=== PATIENT | male | born 1960 | race Caucasian/White ===

== ENCOUNTER 2020-05-11 08:15 | Outpatient (REF) | payer MEDICARE, SELFPAY | END 2020-05-11 08:16 | disposition home or self-care (01) | LOC: HO.LAB 08:15 | PROVIDERS: Visit Provider Internal Medicine | DX: Z20.828 Contact with and (suspected) exposure to other viral communicable diseases (principal) | CPT/HCPCS: C9803; U0003 ==

== ENCOUNTER 2024-12-01 18:39 | Emergency (ER) | payer OTHER, MEDICARE, SELFPAY ==
--- NOTE | ~2024-12-01 | CT_ITS ---
CLINICAL HISTORY: injury, facial trauma CT head without contrast Comparison: CT of the face from 12/01/2024 Findings: No acute intracranial hemorrhage. No midline shift or hydrocephalus. Venous calcifications noted. Vascular calcifications also include imaged carotid siphons. Mild volume loss is generalized with thin bilateral subdural hygromas and borderline prominence of the extra-axial space. Mild mucosal thickening of the imaged paranasal sinuses. Imaged mastoid air cells are well aerated. No acute skull fracture. Scalp calcifications are multifocal and nonspecific. IMPRESSION: 1. No acute intracranial abnormality by CT. This document has been electronically signed by: Jose R Batista MD on 12/01/2024 19:50:21
--- NOTE | ~2024-12-01 | CT_ITS ---
CLINICAL HISTORY: injury, facial trauma CT maxillofacial without contrast Comparison: Head CT from 12/01/2024. Findings: Bilateral nasal bone fractures appear old chronic. No acute displaced orbital wall fracture. Anterior ethmoidal arteries are exposed. Mild left and moderate right osteoarthritis of the imaged temporomandibular joints without dislocation. No acute appearing or suspicious air-fluid levels of the paranasal sinuses with mild paranasal sinus mucosal thickening noted. Imaged mastoid air cells are well aerated. Calcifications of the imaged pharynx as can be seen with chronic and/or prior infection and/or inflammation. Vascular calcifications noted. IMPRESSION: No acute facial bone fracture. This document has been electronically signed by: Jose R Batista MD on 12/01/2024 19:49:47
--- NOTE | ~2024-12-01 | CT_ITS ---
CLINICAL HISTORY: injury, facial trauma CT cervical spine without contrast Comparison: None available Findings: No acute fracture of the cervical spine. Straightening of the cervical lordosis. Trace anterolisthesis at C4-C5 and C5-C6. Facet arthropathy and ligament calcifications are multifocal. Small disc osteophyte complexes with mild spinal canal stenosis at C5-C6 and C6-C7. Moderate right-sided foraminal narrowing at C5-C6. No paraspinal hematoma. Imaged cervical lymph nodes are nonspecific and may be reactive. Mild scarring of the imaged lung apices. IMPRESSION: No acute fracture of the cervical spine. This document has been electronically signed by: Jose R Batista MD on 12/01/2024 19:52:12
--- NOTE | ~2024-12-01 | XR_ITS ---
CLINICAL HISTORY: pain, injury 4 view left wrist Comparison: None Findings: Mild distal radius deformity appears old/chronic. Distal articular surface irregularity of the ulna also appears old/chronic with sclerosis and remodeling. No acute displaced fracture of the imaged radius or ulna. Acute dorsal fracture fragments of the lateral imaged most likely of the acute triquetral avulsion. Marked soft tissue swelling with aybyhqko-rw-ulrrr effusion present. Vascular calcifications noted. Osteoarthritis is multifocal in the dpnzu-ue-iwgo. IMPRESSION: 1. Acute triquetral avulsion fracture. 2. Soft tissue swelling with effusion present. 3. Multifocal osteoarthritis. This document has been electronically signed by: Jose R Batista MD on 12/01/2024 19:30:10
--- NOTE | ~2024-12-01 | XR_ITS ---
CLINICAL HISTORY: fall 4 view left ribs Comparison: None available Findings: Anterior-lateral additional rib deformities appear old/chronic. Acute nondisplaced fracture of the anterior aspect of the left 6 and 7th ribs. Mild bibasilar atelectasis. Emphysematous changes noted. No consolidation, pneumothorax, or pleural effusion. Mild/borderline cardiomegaly. Osteoarthritis includes imaged AC joints. IMPRESSION: 1. Acute nondisplaced fracture of the left 6th and 7th ribs. 2. Additional mild rib deformities appear old/chronic. 3. Mild bibasilar atelectasis. This document has been electronically signed by: Jose R Batista MD on 12/01/2024 19:57:55
--- NOTE | ~2024-12-01 | XR_ITS ---
CLINICAL HISTORY: fall 3 view left elbow Comparison: None Findings: Moderate osteoarthritis of the left elbow including multifocal osteophytes, with degenerative changes most pronounced of the olecranon trochlea articulation. Small-minimal effusion suggested. No acute displaced fracture. No dislocation. Small fragment and/or calcification likely related to medial epicondylitis. No radiopaque retained foreign body. IMPRESSION: 1. No acute fracture or dislocation. 2. Small calcification of the likely medial epicondylitis. 3. Moderate osteoarthritis of the elbow. This document has been electronically signed by: Jose R Batista MD on 12/01/2024 19:29:45
--- NOTE | ~2024-12-01 | XR_ITS ---
CLINICAL HISTORY: trauma 4 view left knee Comparison: None Findings: No acute displaced fracture. No dislocation. Lateral positioning of the patella as can be seen with patellofemoral tracking syndrome. Mild osteoarthritis of the imaged left knee. Moderate effusion present. Periosteal thickening of the proximal tibia as can be seen with venous stasis and stress phenomenon. No radiopaque retained foreign body. IMPRESSION: 1. No acute fracture or dislocation. 2. Moderate effusion present. 3. Mild degenerative changes This document has been electronically signed by: Jose R Batista MD on 12/01/2024 19:58:31
--- NOTE | ~2024-12-01 | XR_ITS ---
CLINICAL HISTORY: injury, pain 3 view left shoulder Comparison: None Findings: Mild inferior positioning of the acromion with mild-moderate osteoarthritis of the imaged left AC joint. Moderate osteoarthritis of the left glenohumeral joint without acute fracture or dislocation. Atelectasis is partially imaged. No radiopaque retained foreign body. IMPRESSION: 1. No acute fracture or dislocation of the left shoulder. 2. Moderate osteoarthritis of the left glenohumeral joint. 3. Mild-moderate osteoarthritis of the left AC joint. This document has been electronically signed by: Jose R Batista MD on 12/01/2024 19:31:04
[2024-12-01 18:45] VITALS: BP 165/93; PULSE 69; RESP 16; TEMP 36.7; O2SAT 96; BMI 29.9
--- NOTE | 2024-12-01 18:45 | ED.GENADULT ---
HPI - General Adult General Chief complaint: Fall Stated complaint: fall, scrape on face hand swollen left side Time Seen by Provider: 12/01/24 19:12 Source: patient, RN notes reviewed and old records reviewed Mode of arrival: ambulatory Limitations: no limitations History of Present Illness ED Provider: Kris MCKEON narrative: 64-year-old male presents for evaluation of a fall. 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 He was reaching up to grab the metal gate the pulled down pain He lost his balance causing him to fall onto his left side pain Complains of left-sided chest pain, left wrist pain and facial pain. He has a small abrasion to his left knee but reports no left knee pain. He is able to ambulate. Denies any loss of consciousness, he is not anticoagulated Related Data Home Medications ?Medication ?Instructions ?Recorded ?Confirmed aspirin 81 mg tablet,delayed 81 mg PO DAILY 12/02/24 release atorvastatin 80 mg tablet 80 mg PO DAILY 12/02/24 fexofenadine 180 mg tablet 180 mg PO DAILY 12/02/24 glimepiride 4 mg tablet 4 mg PO DAILY 12/02/24 hydrochlorothiazide 25 mg tablet 25 mg PO DAILY 12/02/24 lisinopril 30 mg tablet 30 mg PO DAILY 12/02/24 Allergies Allergy/AdvReac Type Severity Reaction Status Date / Time No Known Allergies Allergy Verified 12/02/24 11:31 [No Known Allergies*] Review of Systems Constitutional: Constitutional: Denies body ache(s), Denies chills, Denies fever(s), Denies frequent falls and Denies headache(s) ENT: Denies vertigo, Denies dizziness and Denies headache(s) Cardiovascular: Cardiovascular: Reports chest pain and Denies dyspnea Respiratory: Respiratory: Denies cough and Denies dyspnea Gastrointestinal: Gastrointestinal: Denies abdominal pain, Denies nausea and Denies vomiting Musculoskeletal: Musculoskeletal: Denies back pain, Reports arthralgias, Reports joint swelling, Reports limited range of motion, Denies radiating pain into limb and Denies stiffness Integumentary/Breasts: Skin/Breast: Denies rash and Reports wounds Neurologic: Denies vertigo, Denies dizziness, Denies frequent falls and Denies headache(s) [facility] Social History Social History (Updated 12/02/24 @ 11:32 by LENNY Guzman 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 occupational status: 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 No significant tenderness over the orbits. No nasal bone tenderness Eyes Eyelids: Yes eyelids normal Conjunctivae: conjunctivae normal Sclerae: sclerae normal Corneas: corneas normal Pupils: Equal, round and reactive pupils present EOM: EOMs intact bilaterally Neck Neck: Yes full ROM Resp Effort & Inspection: normal respiratory effort, able to speak in complete sentences and not labored Cardio Rate: regular rate Rhythm: regular rhythm GI Inspection: No distended Palpation (GI): Soft to palpation, not firm, nontender, no guarding and not rigid Back/Spine/Pelvis Other: No C-spine tenderness Skin General skin exam: elasticity normal Neuro General: patient oriented x3 Cranial nerves: Yes Equal, round and reactive pupils present and Yes Bilaterally intact EOM present Cognition (Neuro): normal cognition Extrem Other: The patient is able to move all extremities, mostly his tenderness is at the base of the left thumb and over the scaphoid area. There was no significant tenderness on the ulnar side of the left wrist. There was no deformity to left shoulder or elbow, there is mild tenderness to both areas. He has full range of motion of the left shoulder and elbow. There was a small abrasion to the left knee but no overlying deformity. Course Course Course Narrative: RME performed by Lissett Spencer PA-C. Patient is a 64 year old assigned male at presenting to the emergency department with left sided facial pain after a store gate fell onto him. 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 Imaging ordered. Patient placed back in the waiting room pending room availability and results. Medications Administered Discontinued Medications Generic Name Dose Route Start Last Admin Trade Name Simón PRN Reason Stop Dose Admin Acetaminophen 650 mg 12/01/24 19:21 12/01/24 20:37 Acetaminophen 325 Mg Tablet PO 12/01/24 19:22 650 mg ONCE ONE Administration Bacitracin 1 appl 12/01/24 20:28 12/01/24 20:38 Bacitracin Oint 0.9 Gm Packet TOPICAL 12/01/24 20:29 1 appl ONCE ONE Administration Protocol Medical Decision Making Medical Decision Making MDM Narrative: 64-year-old male presents for evaluation after a fall. He was trying to reach up the pull a gait down closing a store when he fell onto his left side. He is mostly left-sided chest pain and wrist pain over the scaphoid region. There was no crepitus on exam to the chest, no pneumothorax on x-ray. There are acute rib fractures of 6 and 7 on the left. I discussed this with the patient he will be given incentive spirometry. CT scan of the brain, cervical spine and facial bones show no traumatic injury. X-ray of the left shoulder, elbow and needed not show any traumatic injuries but do show severe osteoarthritis. Left wrist x-ray shows a triquetral fracture all the patient does not have any significant tenderness in his area. Most of his tenderness is overlying the scaphoid region. For this reason, the patient was placed in a thumb spica splint which should still have immobilize the wrist as well as protect the scaphoid region. He will follow up with Orthopedics Differential Diagnosis Differential Diagnoses: The differential diagnosis associated with the presentation includes Wrist fracture Contusion Wrist sprain Rib fracture Pneumothorax Hematoma Independent Interpretation I performed an independent interpretation of an: Plain X-Ray (Agree with Radiology interpretation) Radiology Impression Discussion of test interpretation with radiology: I have reviewed the radiologist's reading. Radiologist Impression: Findings: No acute intracranial hemorrhage. No midline shift or hydrocephalus. Venous calcifications noted. Vascular calcifications also include imaged carotid siphons. Mild volume loss is generalized with thin bilateral subdural hygromas and borderline prominence of the extra-axial space. Mild mucosal thickening of the imaged paranasal sinuses. Imaged mastoid air cells are well aerated. No acute skull fracture. Scalp calcifications are multifocal and nonspecific. IMPRESSION: 1. No acute intracranial abnormality by CT. This document has been electronically signed by: Jose R Batista MD on 12/01/2024 19:50:21 Findings: Bilateral nasal bone fractures appear old chronic. No acute displaced orbital wall fracture. Anterior ethmoidal arteries are exposed. Mild left and moderate right osteoarthritis of the imaged temporomandibular joints without dislocation. No acute appearing or suspicious air-fluid levels of the paranasal sinuses with mild paranasal sinus mucosal thickening noted. Imaged mastoid air cells are well aerated. Calcifications of the imaged pharynx as can be seen with chronic and/or prior infection and/or inflammation. Vascular calcifications noted. IMPRESSION: No acute facial bone fracture. This document has been electronically signed by: Jose R Batista MD on 12/01/2024 19:49:47 Findings: No acute fracture of the cervical spine. Straightening of the cervical lordosis. Trace anterolisthesis at C4-C5 and C5-C6. Facet arthropathy and ligament calcifications are multifocal. Small disc osteophyte complexes with mild spinal canal stenosis at C5-C6 and C6-C7. Moderate right-sided foraminal narrowing at C5-C6. No paraspinal hematoma. Imaged cervical lymph nodes are nonspecific and may be reactive. Mild scarring of the imaged lung apices. IMPRESSION: No acute fracture of the cervical spine. This document has been electronically signed by: Jose R Batista MD on 12/01/2024 19:52:12 Findings: Mild inferior positioning of the acromion with mild-moderate osteoarthritis of the imaged left AC joint. Moderate osteoarthritis of the left glenohumeral joint without acute fracture or dislocation. Atelectasis is partially imaged. No radiopaque retained foreign body. IMPRESSION: 1. No acute fracture or dislocation of the left shoulder. 2. Moderate osteoarthritis of the left glenohumeral joint. 3. Mild-moderate osteoarthritis of the left AC joint. This document has been electronically signed by: Jose R Batista MD on 12/01/2024 19:31:04 Findings: Mild distal radius deformity appears old/chronic. Distal articular surface irregularity of the ulna also appears old/chronic with sclerosis and remodeling. No acute displaced fracture of the imaged radius or ulna. Acute dorsal fracture fragments of the lateral imaged most likely of the acute triquetral avulsion. Marked soft tissue swelling with [id number]-zh-[id number] effusion present. Vascular calcifications noted. Osteoarthritis is multifocal in the byqgj-jf-acxh. IMPRESSION: 1. Acute triquetral avulsion fracture. 2. Soft tissue swelling with effusion present. 3. Multifocal osteoarthritis. This document has been electronically signed by: Jose R Batista MD on 12/01/2024 19:30:10 Findings: Moderate osteoarthritis of the left elbow including multifocal osteophytes, with degenerative changes most pronounced of the olecranon trochlea articulation. Small-minimal effusion suggested. No acute displaced fracture. No dislocation. Small fragment and/or calcification likely related to medial epicondylitis. No radiopaque retained foreign body. IMPRESSION: 1. No acute fracture or dislocation. 2. Small calcification of the likely medial epicondylitis. 3. Moderate osteoarthritis of the elbow. This document has been electronically signed by: Jose R Batista MD on 12/01/2024 19:29:45 Findings: Anterior-lateral additional rib deformities appear old/chronic. Acute nondisplaced fracture of the anterior aspect of the left 6 and 7th ribs. Mild bibasilar atelectasis. Emphysematous changes noted. No consolidation, pneumothorax, or pleural effusion. Mild/borderline cardiomegaly. Osteoarthritis includes imaged AC joints. IMPRESSION: 1. Acute nondisplaced fracture of the left 6th and 7th ribs. 2. Additional mild rib deformities appear old/chronic. 3. Mild bibasilar atelectasis. This document has been electronically signed by: Jose R Batista MD on 12/01/2024 19:57:55 Findings: No acute displaced fracture. No dislocation. Lateral positioning of the patella as can be seen with patellofemoral tracking syndrome. Mild osteoarthritis of the imaged left knee. Moderate effusion present. Periosteal thickening of the proximal tibia as can be seen with venous stasis and stress phenomenon. No radiopaque retained foreign body. IMPRESSION: 1. No acute fracture or dislocation. 2. Moderate effusion present. 3. Mild degenerative changes This document has been electronically signed by: Jose R Batista MD on 12/01/2024 19:58:31 Discharge Plan Discharge Clinical Impression: Avulsion fracture of left wrist, Closed rib fracture Patient Disposition: Home, Self-Care Instructions: Wrist Fracture in Adults (ED), Rib Fracture (ED) Additional Instructions: You appear to have a left wrist fracture, it is important to follow up with Orthopedics. Keep the splint in place until you follow up with Orthopedics You also have 2 rib fractures, 6 and 7 on the left Use ibuprofen/Tylenol for pain. I recommended symptoms spirometry to help prevent pneumonia. You should use this once every hour Prescriptions: No Action lisinopril 30 mg tablet 30 mg PO DAILY glimepiride 4 mg tablet 4 mg PO DAILY aspirin 81 mg tablet,delayed release (DR/EC) 81 mg PO DAILY hydrochlorothiazide 25 mg tablet 25 mg PO DAILY atorvastatin 80 mg tablet 80 mg PO DAILY fexofenadine 180 mg tablet 180 mg PO DAILY Referrals: [facility] [Provider Group] (left wrist fracture, ? scaphoid fracture) Interventions: ED Discharge Assessment Last Done: 12/01/24 21:40 Discharge Date/Time: 12/01/24 21:41 Print Language: Tamazight
[2024-12-01 19:25] VITALS: BP 134/59; PULSE 67; RESP 16; TEMP 36.6; O2SAT 97
[2024-12-01] MEDS: Acetaminophen 325 MG TABLET 650 MG PO (20:37)
[2024-12-01] MEDS: Bacitracin Oint 0.9 GM PACKET 1 APPL TOPICAL (20:38)
[2024-12-01 21:30] VITALS: BP 159/82; PULSE 68; RESP 16; TEMP 36.7; O2SAT 98
[2024-12-01 21:40] VITALS: BP 159/82; PULSE 68; RESP 16; TEMP 36.7; O2SAT 98
== END 2024-12-01 21:41 | disposition home or self-care (01) ==
PROVIDERS: Emergency Provider Internal Medicine; PCP Internal Medicine
DX: S80.212A Abrasion, left knee, initial encounter (principal); S62.112A Displaced fracture of triquetrum [cuneiform] bone, left wrist, initial encounter for closed fracture; S22.42XA Multiple fractures of ribs, left side, initial encounter for closed fracture; W18.30XA Fall on same level, unspecified, initial encounter; Y93.89 Activity, other specified; Y92.9 Unspecified place or not applicable; Y99.9 Unspecified external cause status; R51.9 Headache, unspecified; M25.532 Pain in left wrist; R07.89 Other chest pain
CPT/HCPCS: 70450; 70486; 71101; 72125; 73030; 73080; 73110; 73562; 99284

== ENCOUNTER → 2024-12-01 18:47 | Outpatient (BNV) | payer OTHER, SELFPAY | PROVIDERS: PCP Internal Medicine; Visit Provider Radiology Neuroradiology | DX: S09.93XA Unspecified injury of face, initial encounter (principal); R07.89 Other chest pain; S80.212A Abrasion, left knee, initial encounter; M25.532 Pain in left wrist; M25.512 Pain in left shoulder; M25.522 Pain in left elbow; W19.XXXA Unspecified fall, initial encounter; Z04.2 Encounter for examination and observation following work accident | CPT/HCPCS: 70450; 70486; 71101; 72125; 73030; 73080; 73110; 73562 ==

== ENCOUNTER 2024-12-02 11:13 | Outpatient (REF) | payer OTHER, MEDICARE, SELFPAY ==
--- NOTE | ~2024-12-02 | XR_ITS ---
EXAMINATION: XR WRIST NAVICULAR LEFT HISTORY: M25.532 - Pain in left wrist COMPARISON: Comparison is made with the prior examination dated 12/20/2024. FINDINGS: Four views of the left breast including a scaphoid view are submitted. Osseous mineralization is normal. Again seen is a fracture of the triquetrum. No additional fracture is seen. There is no dislocation. The joint spaces are preserved. There are vascular calcifications. XR/XR wrist LT w scaphoid IMPRESSION: Fracture of the triquetrum without change. Electronically signed by: Jared Zamarripa MD 12/02/2024 03:41 PM EDT
--- OUTSIDE RECORDS SUMMARY | 2024-12-02 12:29 | XMS_ITS | Clinical Summary ---
Author Organization [facility] [address] [facility] Address [address] [place] [address] Care Team Providers Care Doctor Of Nurse Anesthesia Practice Name Role Phone No, Pcp (Do Not Change Name) Primary Care Provid er Unavailable Medications lisinopril (PRINIVIL,ZESTRI L) 40 MG tablet Take 40 mg by mouth daily. Active Social History Tobacco Use Types Packs/Day Years Used Date Smoking Tobacco: Never Alcohol Use Standard Drinks/Week Comments No 0 (1 standard drink = 0.6 oz pur e alcohol) Sex and Gender Information Value Date Recorded Sex Assigned at Not on file Legal Sex Male 8:36 PM EDT Gender Identity Not on file Sexual Orientation Not on file Last Filed Vital Signs Vital Sign Reading Time Taken Comments Blood Pressure 171/100 11/20/2013 2:08 AM EDT Pulse 74 11/20/2013 2:08 AM EDT Temperature 36.9 ??C (98.5 ??F) 11/20/2013 2:08 AM ED T Respiratory Rate 16 11/20/2013 2:08 AM EDT Oxygen Saturation 100% 11/20/2013 2:08 AM EDT Inhaled Oxygen Concentration - - Weight 72.6 kg (160 lb) 11/20/2013 2:08 AM EDT Height - - Body Mass Index - - Plan of Treatment Health Maintenance Due Date Last Done Comments HIV screening 02/28/1972 Hepatitis C screening 1977 Tetanus adult (Td q 10,TDAP once) 1979 Lipid disorder screening 1999 Colon cancer screening, Colonoscopy 02/28/2004 Diabetes screening 02/28/2004 Pneumococcal Vaccine (50+ ye ars) (1 of 1 - PCV) 2009 Shingles vaccine (Shingrix) (1 of 2 - Shingrix (RZV) 2 Dose Standard Series) 2009 Covid-19 vaccine series (2023-25 season) 2024 Influenza vaccine 03/03/2025 RSV Immunization (1 - 1-dose 75+ series) 2034 Meningococcal Vaccine Aged Out No delicia martín eligible based on patient's age to complete this topic Insurance [id number] MEDICAID [id number] MEDICAID [id number] MEDICAID [id number] MEDICAID [id number] MEDICAID [id number] MEDICAID [id number] MEDICAID Care Teams Doctor Of Nurse Anesthesia Practice Relationship Specialty Start Date End Date No, Pcp (Do Not Change Name) PCP - General 11/19/13
== END 2024-12-02 11:14 | disposition home or self-care (01) ==
LOC: HO.HOSX 11:13
DX: S62.112A Displaced fracture of triquetrum [cuneiform] bone, left wrist, initial encounter for closed fracture (principal); W19.XXXA Unspecified fall, initial encounter; Y93.9 Activity, unspecified; Y92.9 Unspecified place or not applicable; Y99.9 Unspecified external cause status
CPT/HCPCS: 29085; 73110; 99212

== ENCOUNTER 2024-12-02 11:14 | Outpatient (AMB) | payer OTHER, SELFPAY ==
[2024-12-02 11:25] VITALS: BMI 29.8
--- NOTE | 2024-12-02 11:25 | MHC.OFFVIS ---
Vital Signs 12/02/24 11:25 Height 5 ft 3 in Weight 168 lb BMI 29.8 Intake Visit Reasons: FC- Left wrist avulsion fracture Intake Note: Jeffrey 64 yr old right hand dominant male presents today for a fracture care visit for his left wrist. 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 He was reaching up to grab the metal gate the pulled down pain, he lost his balance causing him to fall onto his left side pain. Seen in [facility] where xrays were taken, a fracture was confirmed and he was splinted. Currently states he is having left thumb pain, swelling and bruising. Denies numbness or tingling. Balance Wheel Hand Filer Name: Tia LANDRUM/BAIRON Allergies No Known Allergies [No Known Allergies*] Allergy (Verified 12/02/24 11:31) [facility] HPI FC- Left wrist avulsion fracture: Details: Jeffrey 64 yr old right hand dominant male presents today for a fracture care visit for his left wrist. 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 He was reaching up to grab the metal gate the pulled down pain, he lost his balance causing him to fall onto his left side pain. Seen in [facility] where xrays were taken, a fracture was confirmed and he was splinted. Currently states he is having left thumb pain, swelling and bruising at the base of the nail. Denies numbness or tingling. 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 Neuro: Normal sensation of the tips of all digits of the left hand at this time Vascular: Cap refill brisk Pain: Some tenderness to palpation at the base of the nail of the R thumb Tender to palpation of the dorsal R wrist ROM: Patient is able to flex and extend all digits of the left hand fully and without difficulty Skin: No lacerations or abrasions. General: No erythema, or evidence of infection. Psych: Appears grossly normal Affect normal Attitude cooperative Office Procedures AMB Fracture Care Details: Left triquetrum avulsion fracture Fracture Billing Code: Fracture Billing Code Casting/Splints 01909-Xjpx/Wrist Cast Application Procedure code (CPT) selection complete Results Reviewed Results Reviewed: X-rays obtained in the office today and independently reviewed by me, Curt Valencia PA-C, demonstrate nondisplaced avulsion fracture of the left triquetrum. Assessment & Plan Assessment & Plan (1) Fracture of triquetrum of left wrist: Code(s): S62.112A - Displaced fracture of triquetrum [cuneiform] bone, left wrist, initial encounter for closed fracture Category: Medical Plan 1. Nondisplaced fracture of the left triquetrum Date of injury 12/01/2024 Patient is educated about this condition Patient is educated about the typical recovery course At this time, due to the absence of significant edema, I feel it is appropriate to place the patient into a short-arm cast Patient is educated on proper cast care and precautions Patient is educated that due to his co contaminant rib fracture and facial fractures, I feel he should speak to his primary care doctor to see if it is still appropriate for him to fly to the [facility] next week Patient is amenable to this plan Follow-up in 3 weeks with repeat x-rays, sooner with any acute concerns Orders: Orders XR wrist LT w scaphoid Today M25.532 - Pain in left wrist Medications: Discontinued oxycodone Partial Fill upon patient request. Discontinued Reason: Patient Completed Course 5 mg PO Q6H PRN 16 tabs 0RF severe pain (scale score 7-10) Coding Level of Care Code Est Pt Level 3 (60891) Diagnoses Fracture of triquetrum of left wrist S62.112A CPT Codes Fracture Care - Fracture Billing Code: Fracture Billing Code ([id number]) Casting - CPT: 70044-Stgc/Wrist Cast Application ([id number])
== END 2024-12-02 12:01 | disposition home or self-care (01) ==
LOC: HO.HOS 11:14
PROVIDERS: PCP Internal Medicine
DX: S62.112A Displaced fracture of triquetrum [cuneiform] bone, left wrist, initial encounter for closed fracture (principal)
CPT/HCPCS: 25630; 99213

== ENCOUNTER → 2024-12-02 11:15 | Outpatient (BNV) | payer OTHER, SELFPAY | PROVIDERS: Visit Provider Radiology Diagnostic Radiology | DX: M25.532 Pain in left wrist (principal) | CPT/HCPCS: 73110 ==

== ENCOUNTER 2024-12-24 08:44 | Outpatient (REF) | payer OTHER, SELFPAY ==
--- NOTE | ~2024-12-24 | XR_ITS ---
EXAMINATION: XR WRIST, LEFT CLINICAL INFORMATION: M25.532 - Pain in left wrist COMPARISON: None available. TECHNIQUE: PA, lateral, spot navicular, oblique views of the left wrist. FINDINGS: No fracture lines are evident. There is joint space narrowing and marginal osteophytes involving the IP joint of the thumb Mild to moderate vascular calcifications are seen in the radial artery. XR/XR wrist LT w scaphoid IMPRESSION: Unremarkable left wrist. 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 Electronically signed by: Osei Bear MD 12/24/2024 03:07 PM EDT
--- OUTSIDE RECORDS SUMMARY | 2024-12-25 09:13 | XMS_ITS | Clinical Summary ---
Author Organization [facility] [address] [facility] Address [address] [place] [address] Care Team Providers Care Real Estate Rep Name Role Phone No, Pcp (Do Not [...] patient's age to complete this topic Insurance [id number] MEDICAID [id number] MEDICAID [id number] MEDICAID [id number] MEDICAID [id number] MEDICAID [id number] MEDICAID [id number] MEDICAID Care Teams Real Estate Rep Relationship Specialty Start Date End Date No, Pcp (Do Not Change Name) PCP - General 11/19/13
== END 2024-12-24 08:45 | disposition home or self-care (01) ==
LOC: HO.HOSX 08:44
DX: M25.532 Pain in left wrist (principal); S62.112A Displaced fracture of triquetrum [cuneiform] bone, left wrist, initial encounter for closed fracture
CPT/HCPCS: 73110; 99212

== ENCOUNTER 2024-12-24 14:51 | Outpatient (AMB) | payer OTHER, SELFPAY ==
[2024-12-24 15:06] VITALS: BMI 29.8
--- NOTE | 2024-12-24 15:06 | A.OFFVIS_ITS ---
Vital Signs 12/24/24 15:06 Height 5 ft 3 in Weight 168 lb BMI 29.8 Intake Visit Reasons: OV: FX of Lt triquetrum (wrist) DOI 12/01/24 w/xrays Intake Note: Jeffrey is a 64 year old right hand dominant male who presents today for a follow up visit for his fracture of the left triquetrum s/p fall DOI: 12/01/24. Cast off and xrays updated in office. States he has no pain at the moment and is doing well over all. Sane Rn Name: Tia LANDRUM/BAIRON Allergies No Known Allergies (No Known Allergies*) Allergy (Verified 12/24/24 15:08) HPI HPI OV: FX of Lt triquetrum (wrist) DOI 12/01/24 w/xrays: Details: Jeffrey is a 64 year old right hand dominant male who presents today for a follow up visit for his fracture of the left triquetrum s/p fall DOI: 12/01/24. Cast off and xrays updated in office. States he has no pain at the moment and is doing well over all. Patient reports his range of motion is full and intact. No other acute complaints or concerns at this time. 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 Neuro: Normal sensation of the tips of all digits of the left hand at this time Vascular: Cap refill brisk Pain: No tenderness to palpation anywhere in the right hand or wrist ROM: Patient is able to flex and extend all digits of the left hand fully and without difficulty Skin: No lacerations or abrasions. General: No erythema, or evidence of infection. Psych: Appears grossly normal Affect normal Attitude cooperative Results Reviewed Results Reviewed: X-rays obtained in the office today and independently reviewed by me, Curt Valencia PA-C, demonstrate nondisplaced avulsion fracture of the left triquetrum. Assessment & Plan Assessment & Plan (1) Fracture of triquetrum of left wrist: Code(s): S62.112A - Displaced fracture of triquetrum [cuneiform] bone, left wrist, initial encounter for closed fracture Category: Medical Plan 1. Nondisplaced fracture of the left triquetrum Date of injury 12/01/2024 Patient is educated about this condition Patient is educated about the typical recovery course Patient is given a Velcro wrist splint to wear with daytime activities Patient should remove this while at rest to continue working on range of motion of the left hand and wrist Patient is amenable to this plan Follow-up in 4 weeks with repeat x-rays, sooner with any acute concerns Orders: Orders XR wrist LT w scaphoid Today M25.532 - Pain in left wrist Coding Level of Care Code Global (87910) Diagnoses Fracture of triquetrum of left wrist S62.112A
--- OUTSIDE RECORDS SUMMARY | 2024-12-24 18:04 | XMS_ITS | Clinical Summary ---
Author Organization [facility] [address] [facility] Address [address] [place] [address] Care Team Providers Care Media Assistant Name Role Phone No, Pcp (Do Not [...] 74 11/20/2013 2:08 AM EDT Temperature 36.9 C (98.5 F) 11/20/2013 2:08 AM EDT Respiratory Rate 16 11/20/2013 2:08 AM EDT [...] patient's age to complete this topic Insurance [id number] MEDICAID [id number] MEDICAID [id number] MEDICAID [id number] MEDICAID [id number] MEDICAID [id number] MEDICAID [id number] MEDICAID Care Teams Media Assistant Relationship Specialty Start Date End Date No, Pcp (Do Not Change Name) PCP - General 11/19/13
== END 2024-12-24 15:24 | disposition home or self-care (01) ==
LOC: HO.HOS 14:51
PROVIDERS: PCP Internal Medicine
DX: S62.112A Displaced fracture of triquetrum [cuneiform] bone, left wrist, initial encounter for closed fracture (principal)
CPT/HCPCS: 99024

== ENCOUNTER → 2024-12-24 14:52 | Outpatient (BNV) | payer OTHER, SELFPAY | PROVIDERS: Visit Provider Radiology Diagnostic Radiology | DX: M18.12 Unilateral primary osteoarthritis of first carpometacarpal joint, left hand (principal) | CPT/HCPCS: 73110 ==

== ENCOUNTER 2025-01-22 14:49 | Outpatient (AMB) | payer OTHER, SELFPAY ==
[2025-01-22 15:02] VITALS: BMI 34.2
--- NOTE | 2025-01-22 15:02 | MHC.OFFVIS ---
Vital Signs 01/22/25 15:02 Height 5 ft 3 in Weight 193 lb BMI 34.2 Intake Visit Reasons: OV: FX of Lt triquetrum (wrist) DOI 12/01/24 w/xrays Intake Note: Jeffrey is a 64 year old right hand dominant male who presents today for a follow up visit s/p left triquetrum fracture 12/01/24. At his last visit he was transitioned into a velcro wrist brace to be worn for daytime activities. Patient reports he is doing well, no further concerns. Denies numbness, tingling, and finger locking. Allergies No Known Allergies (No Known Allergies*) Allergy (Verified 01/22/25 15:07) HPI HPI OV: FX of Lt triquetrum (wrist) DOI 12/01/24 w/xrays: Details: Jeffrey is a 64 year old right hand dominant male who presents today for a follow up visit s/p left triquetrum fracture 12/01/24. At his last visit he was transitioned into a velcro wrist brace to be worn for daytime activities. Patient reports he is doing well, no further concerns. Denies any ongoing pain in the left wrist. Denies numbness, tingling, and finger locking. 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 Neuro: Normal sensation of the tips of all digits of the left hand at this time Vascular: Cap refill brisk Pain: No tenderness to palpation anywhere in the right hand or wrist ROM: Patient is able to flex and extend all digits of the left hand fully and without difficulty Skin: No lacerations or abrasions. General: No erythema, or evidence of infection. Psych: Appears grossly normal Affect normal Attitude cooperative Results Reviewed Results Reviewed: X-rays obtained in the office today and independently reviewed by me, Curt Valencia PA-C, demonstrate minimally displaced triquetral fracture of the left wrist. Assessment & Plan Assessment & Plan (1) Fracture of triquetrum of left wrist: Code(s): S62.112A - Displaced fracture of triquetrum [cuneiform] bone, left wrist, initial encounter for closed fracture Category: Medical Plan 1. Nondisplaced fracture of the left triquetrum Date of injury 12/01/2024 Patient is educated about this condition Patient is educated about the typical recovery course Patient is given a Velcro wrist splint to wear with high-risk daytime activities daytime activities Patient should remove this while at rest to continue working on range of motion of the left hand and wrist Patient is educated he should continue with 2 lb weight limit, however patient states ?there is nothing wrong with my wrist anymore and is frustrated by this recommendation Can begin gentle return to normal weightlifting over the next 3-4 weeks Follow-up as needed with any acute concerns Coding Level of Care Code Global (45798) Diagnoses Fracture of triquetrum of left wrist S62.112A
--- OUTSIDE RECORDS SUMMARY | 2025-01-22 15:24 | XMS_ITS | Clinical Summary ---
Author Organization [facility] [address] [facility] Address [address] [place] [address] Care Team Providers Care Energy Trader Name Role Phone No, Pcp (Do Not [...] patient's age to complete this topic Insurance [id number] MEDICAID [id number] MEDICAID [id number] MEDICAID [id number] MEDICAID [id number] MEDICAID [id number] MEDICAID [id number] MEDICAID Care Teams Energy Trader Relationship Specialty Start Date End Date No, Pcp (Do Not Change Name) PCP - General 11/19/13
--- OUTSIDE RECORDS SUMMARY | 2025-01-22 15:24 | XMS_ITS | Encounter Summary ---
Author Organization [facility] Address [address] [place] [address] Phone Care Team Providers Care Research Development Director Name Role Phone Lamberto Rogel MD Primary Care Provider + Encounter Details Date Type Department Care Team ([facility] st Contact Info) Description 03/09/2023 Telephone [facility] Podiatry [address] [place] [address] Luis Manuel Morris DPM [address] [facility] [address] [place] [address] [email or web address] Social History Tobacco Use Types Packs/Day Years Used Date Smoking Tobacco: Never Assessed Sex and Gender Information Value Date Recorded Sex Assigned at Not on file Legal Sex Male 9:21 AM EDT Gender Identity Not on file Sexual Orientation Not on file documented as of this encounter Plan of Treatment Not on file documented as of this encounter Visit Diagnoses Not on filedocumented in this encounter Care Teams Research Development Director Relationship Specialty Start Date End Date Lamberto Rogel MD [address] [place] [address] PCP - General Internal Medicine 02/01/23 documented as of this encounter Additional Source Comments The information contained in this document represents components of the legal health record. It is not the complete legal health record.[facility]
--- OUTSIDE RECORDS SUMMARY | 2025-01-22 15:24 | XMS_ITS | Clinical Summary ---
Author Organization [facility] Address [address] [place] [address] Phone Care Team Providers Care Business Test Analyst Name Role Phone Lamberto Rogel MD Primary Care Provider [phone] Allergies No known active allergies Medications fluticasone propionate (FLONASE) 50 mcg/actuation nasal spray 1 spray per nostril twice per day, as needed for nasal congestion 03/28/20 24 Active fexofenadine (HEIDI) 180 mg tablet Take 1 tablet (180 mg total) by mouth 1 (one) time each day. 03/28/20 24 Active dapagliflozin propanediol (FARXIGA) 10 mg tablet Take 1 tablet (10 mg total) by mouth 1 (one) time each day. 03/07/20 24 Active ciclopirox (PENLAC) 8 % solution Apply 3 Drops topically at bedtime. 10/10/19 24 Active lancets 30 gauge misc 1 EACH BY DOES NOT APPLY ROUTE DAILY. TO CHECK SUGARS ONCE DAILY 01/29/20 22 Active blood sugar diagnostic (FreeStyle Lite Strips) test strip To check sugars 1-2 times a day. 09/18/19 22 Active FREESTYLE LANCETS MISC Use to test blood sugar every morning 02/23/20 22 Active blood-glucose meter kit Meter - OTC Active omega-3 acid ethyl esters (LOVAZA) 1 gram capsule Take 1 capsule (1 g total) by mouth 1 (one) time each day. 90 each 2 09/13/19 25 Active lisinopriL (PRINIVIL,ZESTRI L) 30 mg tablet Take 1 tablet (30 mg total) by mouth 1 (one) time each day. 90 tablet 2 09/13/19 25 Active atorvastatin (LIPITOR) 80 mg tablet Take 1 tablet (80 mg total) by mouth at bedtime. 90 tablet 1 09/13/19 25 Active hydroCHLOROthiaz katrin (HYDRODIURIL) 25 mg tabletIndication s:Essential (primary) hypertension Take 1 tablet (25 mg total) by mouth 1 (one) time each day. 90 tablet 1 09/13/19 25 Active aspirin 81 mg EC tablet Take 1 tablet (81 mg total) by mouth 1 (one) time each day. 90 tablet 2 12/06/19 25 Active oxyCODONE (ROXICODONE) 5 mg immediate release tablet Take 1 tablet (5 mg total) by mouth every 4 (four) hours if needed for severe pain. Max Daily Amount: 30 mg 20 tablet 12/06/19 25 Active glimepiride (AMARYL) 4 mg tablet TAKE 1 TABLET (4 MG TOTAL) BY MOUTH 1 (ONE) TIME EACH DAY WITH LUNCH. 90 tablet 1 01/18/20 25 Active glimepiride (AMARYL) 4 mg tablet Take 1 tablet (4 mg total) by mouth 1 (one) time each day with lunch. 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 Hyperlipidemia 08/11/2014 Hypertension 08/11/2014 Encounters Date Type Department Care Team Description 12/05/2024 4:30 PM EDT Office Visit Adult Medicine [address] [address] Lamberto Rogel MD Closed fracture of left wrist, sequela (Primary Dx); Closed fracture of multiple ribs of left side with routine healing, subsequent encounter; Fall, subsequent encounter from Last 3 Months Immunizations Name Administration Dates Next Due Influenza Quadravalent, MDCK , 0.5ml, preservative free (Flucelvax) 6mo and older 04/22/2021,03/13/2020,04/05/2018,04/06 Influenza Quadravalent, MDCK , 0.5ml, with preservative (Flucelvax) 6mo and older 05/23/2022 Influenza trivalent, 0.5mL ( Fluad) 65yo and older 03/07/2024,04/07/2015,03/25/2011 Pneumococcal polysaccharide 23 valent (Pneumovax 23) 2yo and older 03/25/2011 Tdap Tetanus diptheria acell ular pertussis (Boostrix; Adacel) 7yo and older 04/05/2018 Surgical History Surgery Date Site/Laterality Comments COLONOSCOPY 11/02/2012 PROCEDURE: HISTORICAL COLONOSCOPY; COMMENT: [facility]. Normal results Medical History Medical History Date Comments Hypertension 08/11/2014 DX:Hypertension Hyperlipemia 08/11/2014 DX:Hyperlipemia Diabetes type 2, controlled ([facility] V24, [facility] V28) 09/27/2014 DX:Diabetes type 2, controll ed ([facility]) Family History Medical History Relation Name Comments Hypertension Brother asthma, diabete s Diabetes Father prostate cancer Hypertension Mother DM, asthma Asthma Sister Relation Name Status Comments Brother Father Mother Sister Social History Tobacco Use Types Packs/Day Years Used Date Smoking Tobacco: Never Smokeless Tobacco: Never Tobacco Cessation:Counseling Given: Not Answered Alcohol Use Standard Drinks/Week Comments Not Asked 0 (1 standard drink = 0.6 oz pur e alcohol) Sex and Gender Information Value Date Recorded Sex Assigned at Not on file Legal Sex Male 9:48 AM EST Gender Identity Not on file Sexual Orientation Not on file Obstetrics History Last Filed Vital Signs Vital Sign Reading Time Taken Comments Blood Pressure 120/78 12/05/2024 3:53 PM EDT Pulse 78 12/05/2024 3:53 PM EDT Temperature 36.4 C (97.6 F) 09/12/2024 8:22 AM EDT Respiratory Rate 14 12/05/2024 3:53 PM EDT Oxygen Saturation 97% 12/05/2024 3:53 PM EDT Inhaled Oxygen Concentration - - Weight 77.6 kg (171 lb) 12/05/2024 3:53 PM EDT Height 160 cm (5' 3 ) 09/12/2024 8:22 AM EDT Body Mass Index 30.29 09/12/2024 8:22 AM EDT Plan of Treatment Upcoming Encounters Date Type Department Care Team (Late st Contact Info) Description 03/25/2025 3:45 PM EDT Office Visit Adult Medicine [facility] [address] [place] [address] Lamberto Rogel MD [address] [place] [phone] Health Maintenance Due Date Last Done Comments Diabetes: Annual Foot Exam 1969 Zoster Vaccines (1 of 2) 2009 Pneumococcal Vaccine: 50+ Years (2 of 2 - PCV) 03/25/2012 03/25/2011 RSV Immunization Adult Patients (1 - Risk 60-74 years 1-dose series) 2019 Colorectal Cancer Screening: Colonoscopy 06/11/2022 Medicare Annual Wellness Visit 06/11/2022 Social Influencers of Health Screening 06/11/2022 Falls Risk Assessment 02/28/2024 COVID-19 Vaccine ( season) 2024 10/21/2020, 09/23/2020 Depression Screening 07/03/2024 03/07/2024 Influenza Vaccine (#1) 2025 , 04/13/2023, 05/23/2022, Additional history exists Diabetes: Blood Sugar Control Test (HGBA1C) 03/14/2025 09/11/2024, 03/06/2024, 03/06/2024 Diabetes: Annual Urine Albumin-Creatinine Ratio (uACR) 09/11/2025 09/11/2024, 03/06/2024 Diabetes: Annual GFR (Glomerular Filtration Rate) 09/11/2025 09/11/2024, 03/06/2024, 03/06/2024 Hypertension/CHF/CAD Annual BMP Blood Test 09/11/2025 09/11/2024, 03/06/2024, 03/06/2024 Diabetes: Annual Retina Eye Exam 11/14/2025 11/14/2024, 07/24/2023 DTaP,Tdap,and Td Vaccines (2 - Td or Tdap) 04/05/2028 04/05/2018 Cholesterol Screening (Lipid Panel) 09/11/2029 09/11/2024, 03/06/2024, 03/06/2024 Hepatitis C Screening Completed 04/11/2018 HIB Vaccines Aged Out No longer eligi ble based on patient's age to complete this topic HPV Vaccines Aged Out No longer eligi ble based on patient's age to complete this topic Hepatitis A Vaccines Aged Out No long er eligible based on patient's age to complete this topic Hepatitis B Vaccines Aged Out No long er eligible based on patient's age to complete this topic IPV Vaccines Aged Out No longer eligi ble based on patient's age to complete this topic MMR Vaccines Aged Out No longer eligi ble based on patient's age to complete this topic Meningococcal ACWY Vaccine Aged Out N o longer eligible based on patient's age to complete this topic Meningococcal B Vaccine Aged Out No l onger eligible based on patient's age to complete this topic RSV Immunization Patients Under 20 months Aged Out No longer eligible based on patient's age to complete this topic Varicella Vaccines Aged Out No longer eligible based on patient's age to complete this topic Procedures Procedure Name Priority Date/Time Associated Diagnosis Comments EXTERNAL DIABETIC RETINA EYE EXAM 11/14/2024 MICROALBUMIN CREATININE URINE RATIO Routine 09/11/2024 9:06 AM EDT Controlled type 2 diabetes with neuropathy (CMS/HCC V24, CMS/HCC V28) Hypertension, unspecified type Hyperlipidemia, unspecified hyperlipidemia type COMPREHENSIVE METABOLIC PANEL Routine 09/11/2024 9:06 AM EDT Controlled type 2 diabetes with neuropathy (CMS/HCC V24, CMS/HCC V28) Hypertension, unspecified type Hyperlipidemia, unspecified hyperlipidemia type HEMOGLOBIN A1C Routine 09/11/2024 9:06 AM EDT Controlled type 2 diabetes with neuropathy (CMS/HCC V24, CMS/HCC V28) Hypertension, unspecified type Hyperlipidemia, unspecified hyperlipidemia type LIPID PANEL WITH REFLEX TO DIRECT LDL Routine 09/11/2024 9:06 AM EDT Hyperlipidemia HM DEPRESSION SCREENING Routine 03/07/2024 HEPATITIS C SCREENING Routine 04/11/2018 from Last 3 Months or Most Recently Relevant to Health Maintenance Results * External Diabetic Retina Eye Exam Report (11/14/2024) Anatomical Region Laterality Modality Ultrasound us Provider [facility] US PROCEDURES Final Result * Lipid panel with reflex to direct LDL (09/11/2024 9:06 AM EDT) Cholesterol 155 0 - 200 mg/dL LAB CHEMISTRY METHOD 09/11/2024 1:01 PM EDT [facility] Triglycerides 127 0 - 150 mg/dL LAB CHEMISTRY METHOD 09/11/2024 1:01 PM EDT [facility] HDL 40 >=40 mg/dL LAB CHEMISTRY METHOD 09/11/2024 1:01 PM EDT [facility] LDL Calculated 90 0 - 100 mg/dL LAB CHEMISTRY METHOD 09/11/2024 1:01 PM EDT [facility] VLDL Cholesterol Larry 25.4 mg/dL LAB CHEMISTRY METHOD 09/11/2024 1:01 PM EDT [facility] Non HDL Chol. (LDL+VLDL) 115 <145 mg/dL LAB CHEMISTRY METHOD 09/11/2024 1:01 PM EDT [facility] Chol/HDL Ratio 3.9 0.0 - 4.4 LAB CHEMISTRY METHOD 09/11/2024 1:01 PM EDT [facility] Blood Venous blood specimen / Unknown Venipuncture / Unknown 09/11/2024 9:06 AM EDT 09/11/2024 9:06 AM EDT us Lamberto Rogel MD LAB BLOOD ORDERABLES Final Resu lt [facility] [address] [place] [address], [place] [phone] * Microalbumin creatinine urine ratio (09/11/2024 9:06 AM EDT) Creatinine, Urine 189.0 mg/dL LAB CHEMISTRY METHOD 09/11/2024 10:46 AM EDT [facility] Microalb, Ur 12.7 0.0 - 29.0 mg/L LAB CHEMISTRY METHOD 09/11/2024 10:46 AM EDT [facility] Microalb/Creat Ratio 7 <30 mg/g creat LAB CHEMISTRY METHOD 09/11/2024 10:46 AM EDT [facility] Urine Urine specimen obtained by clean catch procedure / Unknown Non-blood Collection / Unknown 09/11/2024 9:06 AM EDT 09/11/2024 9:06 AM EDT us Lamberto Rogel MD LAB URINE ORDERABLES Final Resu lt Performing Organization Address City/[facility]/ZIP Co de Phone Number [facility] [address] [place] [address], [place] [phone] * (ABNORMAL) Hemoglobin A1c (09/11/2024 9:06 AM EDT) Pathologist [facility] Hemoglobin A1C 6.9(H) <6.5 % LAB CHEMISTRY METHOD 09/11/2024 1:55 PM EDT [facility] Mean Bld Glu Estim. 151 mg/dL LAB CHEMISTRY METHOD 09/11/2024 1:55 PM EDT [facility] Blood Venous blood specimen / Unknown Venipuncture / Unknown 09/11/2024 9:06 AM EDT 09/11/2024 9:06 AM EDT us Lamberto Rogel MD LAB BLOOD ORDERABLES Final Resu lt Performing Organization Address City/[facility]/ZIP Co de Phone Number [facility] [address] [place] [address], [place] [phone] * (ABNORMAL) Comprehensive metabolic panel (09/11/2024 9:06 AM EDT) [facility] Sodium 138 133 - 145 mmol/L LAB CHEMISTRY METHOD 09/11/2024 1:01 PM [facility] Potassium 4.7 3.5 - 5.5 mmol/L LAB CHEMISTRY METHOD 09/11/2024 1:01 PM [facility] Chloride 103 96 - 110 mmol/L LAB CHEMISTRY METHOD 09/11/2024 1:01 PM [facility] CO2 30 21 - 32 mmol/L LAB CHEMISTRY METHOD 09/11/2024 1:01 PM [facility] Anion Gap 5 3 - 11 LAB CHEMISTRY METHOD 09/11/2024 1:01 PM [facility] Glucose 109(H) 70 - 100 mg/dL LAB CHEMISTRY METHOD 09/11/2024 1:01 PM [facility] BUN 11 5 - 25 mg/dL LAB CHEMISTRY METHOD 09/11/2024 1:01 PM [facility] Creatinine 0.90 0.70 - 1.30 mg/dL LAB CHEMISTRY METHOD 09/11/2024 1:01 PM [facility] eGFR 95 >=60 mL/min/1. 73m2 LAB CHEMISTRY METHOD 09/11/2024 1:01 PM [facility] Comment:Calculation based on the Chronic Kidney Disease Epidemiology Collaboration (CKD-EPI) equation refit without adjustment for race. BUN/Creatinine Ratio 12.2 LAB CHEMISTRY METHOD 09/11/2024 1:01 PM [facility] Calcium 9.7 8.5 - 10.5 mg/dL LAB CHEMISTRY METHOD 09/11/2024 1:01 PM [facility] AST (SGOT) 14 10 - 42 unit/L LAB CHEMISTRY METHOD 09/11/2024 1:01 PM [facility] ALT (SGPT) 33 10 - 60 unit/L LAB CHEMISTRY METHOD 09/11/2024 1:01 PM [facility] Alkaline Phosphatase 99 42 - 121 unit/L LAB CHEMISTRY METHOD 09/11/2024 1:01 PM EDT [facility] Total Protein 7.8 6.0 - 8.0 g/dL LAB CHEMISTRY METHOD 09/11/2024 1:01 PM EDT [facility] Albumin 4.3 3.2 - 5.0 g/dL LAB CHEMISTRY METHOD 09/11/2024 1:01 PM EDT [facility] Total Bilirubin 1.0 0.0 - 1.4 mg/dL LAB CHEMISTRY METHOD 09/11/2024 1:01 PM EDT [facility] Blood Venous blood specimen / Unknown Venipuncture / Unknown 09/11/2024 9:06 AM EDT 09/11/2024 9:06 AM EDT Lamberto Rogel MD LAB BLOOD ORDERABLES Final Resu lt [facility] [address] [place] [address], * Depression Screening (03/07/2024) Pathologist [facility] Depression Screening Abstracted Historical Provider HEALTH MAINTENANCE Final Result * Hepatitis C Screening (04/11/2018) Pathologist [facility] Hepatitis C Screening Abstracted Historical Provider HEALTH MAINTENANCE Final Result from Last 3 Months or Most Recently Relevant to Health Maintenance Insurance [employer] MEDICARE Care Teams Business Test Analyst Relationship Specialty Start Date End Date Lamberto Rogel MD [address] [place] [id number] PCP - General Internal Medicine 01/11/17
== END 2025-01-22 15:25 | disposition home or self-care (01) ==
PROVIDERS: PCP Internal Medicine
DX: S62.112A Displaced fracture of triquetrum [cuneiform] bone, left wrist, initial encounter for closed fracture (principal)
CPT/HCPCS: 99024